=== PATIENT | female | born 1980 | race Caucasian/White ===

== ENCOUNTER 2022-07-25 09:43 | Outpatient (CLI) | payer BC, SELFPAY ==
--- NOTE | 2022-07-25 15:30 | CRLHL7_ITS ---
For Patients: As a result of the Century Cures Act, medical imaging exams and procedure reports are released immediately into your electronic medical record. You may view this report before your referring provider. If you have questions, please contact your health care provider. INDICATION: Dystonia. TECHNIQUE: Brain MRI with contrast. The following sequences were obtained: Sagittal T1 weighted sequence. DWI and ADC mapping sequences. Axial FLAIR and LAWRENCE T2 weighted sequences. Susceptibility weighted or GRE sequence. T1 weighted post-contrast sequence(s). 15 cc of Dotarem gadolinium based contrast agent was used. COMPARISON: None. FINDINGS: No evidence of acute ischemia. No evidence of acute or chronic intracranial blood products. No mass or pathologic intracranial enhancement. Scattered FLAIR hyperintensities within the supratentorial white matter, typical for microvascular ischemic changes. No hydrocephalus or extra-axial collections. The pituitary gland, parasellar structures and optic chiasm are normal. Posterior fossa is normal. All the major intracranial vascular structures demonstrate normal flow-related signal. The orbital contents are normal. No calvarial or skull base marrow signal abnormality. Moderate mucosal thickening involving the ethmoid air cells, inferior maxillary sinuses and left sphenoid sinus. No extracranial soft tissue findings. IMPRESSION: 1. No acute infarction other acute intracranial pathology. 2. No mass or pathologic intracranial enhancement. 3. Minimal chronic microvascular ischemic changes. Dictated by Ben eDxter MD @ 07/25/2022 4:40:39 PM (Electronically Signed)
== END 2022-07-25 09:44 | disposition home or self-care (01) ==
PROVIDERS: PCP Family Medicine; Visit Provider Internal Medicine
DX: G24.9 Dystonia, unspecified (principal); I67.82 Cerebral ischemia
CPT/HCPCS: 70553; A9575

== ENCOUNTER 2025-06-25 14:00 | Outpatient (RCR) | payer OTHER, SELFPAY | END 2025-10-23 23:59 | disposition home or self-care (01) | PROVIDERS: PCP Family Medicine; Visit Provider Internal Medicine Gastroenterology | DX: K59.09 Other constipation (principal); Z51.89 Encounter for other specified aftercare | CPT/HCPCS: 97110; 97140; 97163; 97535 ==